=== PATIENT | female | born 1980 | race Caucasian/White ===

== ENCOUNTER 2016-05-05 18:05 | Emergency (ER) | payer BC ==
--- NOTE | ~2016-05-05 | ER ---
PATIENT'S NAME: YULY TINSLEY [facility] AGE: 35 Y [address] ROOM: [place] [address] LOCATION: [facility] ADMIT DATE: 05/05/2016 ER/Outpatient Report DISCHARGE DATE: 05/05/2016 FAMILY PHYSICIAN: Yudelka Donnelly ATTENDING PHYSICIAN: Wil Harper Admission date and time are documented in the medical record. I saw the patient at 1815 hours. CHIEF COMPLAINT: Possible passing kidney stone. HISTORY OF PRESENT ILLNESS: This patient is a 35-year-old female who over the past 4 days has had some right flank pain and now it is kind of mid-lower abdominal pelvic pain. She has some urinary frequency. She thought she had some blood in her urine. She has had multiple ureteral stones that she has passed by history. No chest pain or shortness of breath. No lightheadedness, dizziness, syncope, or near syncope. No recent coughs, colds, flus, fever, chills, or sweats. No headache, eyes, ears, nose, throat, neck, or spine pain. No fall or trauma. No nausea, vomiting, or diarrhea. No joint or muscle swelling, redness, or pain. No skin eruptions or rash. No history of neuro changes. She does have anxiety and depression. HOME MEDICATIONS: See attached medication list. ALLERGIES: REGLAN. SOCIAL HISTORY: The patient smokes a pack of cigarettes per day and has quit for 2 weeks. Nondrinker. SIGNIFICANT PAST MEDICAL HISTORY: Tobacco abuse, right arm pain, hypertension, nephrolithiasis, anxiety, and depression. OPERATIONS: Cystoscopy with stone extraction, cholecystectomy, appendectomy, and C- section. REVIEW OF SYSTEMS: All systems reviewed by me are negative with the exception of those discussed in the history of present illness. PATIENT'S NAME: YULY TINSLEY [facility] AGE: 35 Y [address] ROOM: [place] [address] LOCATION: [facility] ADMIT DATE: 05/05/2016 ER/Outpatient Report DISCHARGE DATE: 05/05/2016 FAMILY PHYSICIAN: Yudelka Donnelly ATTENDING PHYSICIAN: Wil Harper PHYSICAL EXAMINATION: VITAL SIGNS: Temperature 98.3, orally, pulse 85, respirations 16, blood pressure 120/89, and O2 sat on room air is 95%. HEAD: Normocephalic. EYES, EARS, NOSE, THROAT: Clear. NECK: Negative. LUNGS: Clear. HEART: Regular. ABDOMEN: Soft. Some mild tenderness suprapubically. No true guarding or rigidity. No distention. Bowel tones present. No organomegaly or abnormal mass palpable. No CVA tenderness. EXTREMITIES: Intact. NEUROVASCULAR: Intact. SKIN: Clear. No skin eruptions or rash. LABORATORY DATA: CMS was normal except for low potassium 3.0, elevated glucose 136, elevated creatinine 1.4, low GFR of 43, and elevated AST of 66. Urinalysis was clear. Urine test was negative. White count was 12,600, 57 segs, 33 lymphs, 7 monos, 2 eos, 1 baso, hemoglobin is 15.2 with hematocrit 46.0, and platelet count 305,000. CT scan of the abdomen and pelvis with renal stone protocol showed no evidence of abnormalities. No free air or free fluid. No ureteral stones, bladder stones, or urethral stones. She does have some stones intrarenally with no obstruction. CT scan was read by Radiology, see dictated transcribed report. IMPRESSION: 1. Flank pain, midabdominal pain, etiology uncertain. No evidence of ureteral stones or bladder stones. No evidence of urinary tract infection. There is no evidence of intraabdominal abnormalities on CT scan. 2. Mild renal insufficiency. 3. Mild hypokalemia with a potassium of 3.0. 4. Anxiety and depression. PLAN: The patient was given IV normal saline, fluids, Dilaudid IV for pain, Toradol IV for pain, and Zofran IV for nausea. Discharged home. Observation. Activity as tolerated. Fluids, empty bladder often, diet as tolerated. Continue present home medications and care. Prom[place] 7.5/325 as needed for pain, #10. Follow up with personal physician in 1 to 2 days if problems persist. Discussed ensued with the patient concerning my findings and recommendations, she understands. PATIENT'S NAME: YULY TINSLEY [facility] AGE: 35 Y [address] ROOM: [place] [address] LOCATION: ED ADMIT DATE: 05/05/2016 ER/Outpatient Report DISCHARGE DATE: 05/05/2016 FAMILY PHYSICIAN: Yudelka Donnelly ATTENDING PHYSICIAN: Wil Harper MD JUANJOSE GARCIA/danital /[id number] d: 05/05/16 2313 t: 05/06/16 0342, OUTPATIENT REPORT
[~2016-05-05 18:05] MED LIST: AMBIEN5 MG PO; ATENOLOL-CHLOR1 EAC1 PO; ATIVAN 1 MG1 MG PO; BENADRYL25 MG PO; CLARITIN10 MG PO; CYMBALTA30 MG PO; CYMBALTA60 MG PO; FLEXERIL10 MG PO; HYGROTON25 MG PO; IMITREX6 MG/0.5 M SUB-Q; IMITREX6 MG/0.51 SUB-Q; K-TAB ER20 MEQ PO; NICODERM/HABITR21 MG TRANS; NORCO 5-325 MG1 TAB PO; PERCOCET 5-3251 EACH PO; PROAIR RESPICL90 MCG INH; PROVENTIL OR V6.7 GM INH; SEROQUEL200 MG PO; SEROQUEL50 MG PO; TENORMIN50 MG PO; TYLENOL WITH C1 EACH PO; ULTRAM50 MG PO; VISTARIL50 MG PO; ZOFRAN4 MG PO; [UNRECOGNIZED DRUG - OTHER] PO; [UNRECOGNIZED DRUG - OTHER] PO
[2016-05-05 18:53] LABS: BASOPHIL # 0.1 K/uL (0.0-0.2); BASOPHIL % 0.6 %; EOSINOPHIL # 0.3 K/uL (0.0-0.5); EOSINOPHIL % 2.1 %; HEMOGLOBIN 15.2 g/dL (11.0-15.0); IMMATURE GRANULOCYTE % 0.3 %; LYMPHOCYTE # 4.2 K/uL (0.8-4.0); LYMPHOCYTE % 33.3 %; MCH 24.1 pg (27.0-34.0); MCV 72.8 fl (83.0-98.0); MONOCYTE # 0.8 K/uL (0.0-1.0); MONOCYTE % 6.7 %; MPV 9.2 fl (9.4-12.4); NEUTROPHIL # (ANC) 7.2 K/uL (1.8-7.8); NRBC % 0 /100WBC (0-0.00); PLATELET COUNT 305 K/uL (150-450); RBC 6.32 M/uL (3.50-5.50); WBC 12.6 K/uL (4.0-11.0)
[2016-05-05 18:59] LABS: BILIRUBIN URINE NEGATIVE (NEGATIVE); BLOOD URINE NEGATIVE /UL (NEGATIVE); COLOR URINE YELLOW (YELLOW); GLUCOSE URINE NEGATIVE (NEGATIVE); KETONE URINE NEGATIVE (NEGATIVE); LEUKOCYTES URINE NEGATIVE /UL (NEGATIVE); NITRITE URINE NEGATIVE (NEGATIVE); PROTEIN URINE NEGATIVE (NEGATIVE); TURBIDITY URINE CLEAR (CLEAR); UROBILINOGEN URINE 1 mg/dL (NORMAL)
[2016-05-05 19:09] LABS: ALBUMIN 3.6 gm/dL (3.5-5.0); CALCIUM 8.9 mg/dL (8.5-10.5); CREATININE 1.4 mg/dL (0.5-1.1); TOTAL BILIRUBIN 0.3 mg/dL (0.0-1.5); TOTAL PROTEIN 7.5 g/dL (6.0-8.4)
== END 2016-05-05 20:50 | disposition disaster alternative care site (69) ==
LOC: GMED 18:05
PROVIDERS: Emergency Medicine
DX: R10.30 Lower abdominal pain, unspecified (principal); N28.9 Disorder of kidney and ureter, unspecified; E87.6 Hypokalemia; F32.9 Major depressive disorder, single episode, unspecified; F41.9 Anxiety disorder, unspecified; F17.210 Nicotine dependence, cigarettes, uncomplicated; I10 Essential (primary) hypertension; Z90.49 Acquired absence of other specified parts of digestive tract; Z88.8 Allergy status to other drugs, medicaments and biological substances; Z98.890 Other specified postprocedural states
CPT/HCPCS: J1170

== ENCOUNTER 2016-07-22 23:12 | Emergency (ER) | payer BC ==
--- NOTE | ~2016-07-22 | ER ---
PATIENT'S NAME: YULY TINSLEY [facility] AGE: 36 Y [address] ROOM: [place] [address] LOCATION: [facility] ADMIT DATE: 07/22/2016 ER/Outpatient Report DISCHARGE DATE: 07/23/2016 FAMILY PHYSICIAN: Yudelka Donnelly ATTENDING PHYSICIAN: Marv Walls Time of Arrival: 2312 hours. Time of Evaluation: 2320 hours. CHIEF COMPLAINT: Migraine. HISTORY OF PRESENT ILLNESS: The patient is a 36-year-old female, who presents to the emergency department today with a chief complaint of migraine. The patient does have a history of migraines in the past. She reports her last similar headache was few months ago. She has worst headache of her life. There is no thunderclap headache. Pain is currently 8/10 in severity. Does report some nausea and vomiting x3 to 4 times. The patient did recently undergo a neck surgery on July [address] Cortez. She has not had any complications with this. No fevers or chills. No diarrhea or constipation. No photophobia. It is very similar to previous headaches. It is a tightness in the forehead. PAST MEDICAL HISTORY: Migraines, kidney stones. PAST SURGICAL HISTORY: Neck surgery, appendix, cholecystectomy, , lithotripsy. SOCIAL HISTORY: The patient denies any tobacco, alcohol, or illicit drug use. ALLERGIES: TO REGLAN, DILAUDID. MEDICATIONS: Please see list. PRIMARY CARE DOCTOR: MELISSA Masters. REVIEW OF SYSTEMS: All systems are reviewed by myself and are negative with the exception of those discussed in the HPI and past medical history. PATIENT'S NAME: YULY TINSLEY [facility] AGE: 36 Y [address] ROOM: [place], [place] [address] LOCATION: [facility] ADMIT DATE: 07/22/2016 ER/Outpatient Report DISCHARGE DATE: 07/23/2016 FAMILY PHYSICIAN: Yudelka Donnelly ATTENDING PHYSICIAN: Marv Walls PHYSICAL EXAMINATION: VITAL SIGNS: Weight 96.5 kg, blood pressure 149/94, pulse 91, respiratory rate 16, temperature 98.1, oxygen saturation 96% on room air. GENERAL: The patient is a 36-year-old female, who appears stated age, in mild acute distress secondary to pain in her head. HEENT: Normocephalic, atraumatic. Pupils are equal, round, and reactive to light and accommodation. Extraocular motions are intact. Nares are patent bilaterally. TMs are clear. Oropharynx is clear. NECK: Neck is in a cervical collar. This remains on. CARDIOVASCULAR: Regular rate and rhythm. No murmurs, rubs, or gallops. LUNGS: Clear to auscultation bilaterally. No wheezes, rales, or rhonchi. ABDOMEN: Soft, nontender, and nondistended. No rebound, rigidity, or guarding. MUSCULOSKELETAL: The patient moves all 4 extremities. 5/5 muscle strength. NEUROLOGICAL: GCS 15. Alert and oriented x4. Cranial nerves 2 through 12 are grossly intact. Normal [id number]. Normal rapid hand movement. Equal silk soaker strength bilaterally. Downward going toes. No clonus. 2/4 reflexes. SKIN: Warm and dry. There are no rashes or lesions noted. LABORATORY DATA AND X-RAYS: None. IMPRESSION: 1. Cephalgia, migraine type. 2. Initial visit. EMERGENCY DEPARTMENT COURSE: The patient was brought back to the examination room. Seen and evaluated by myself. IV is established. Laboratory analysis and imaging are not obtained secondary to the patient's history of previous migraines similar to this. The patient does report she tried her IM injections without any relief. Thus, we did initiate the IV and gave 30 mg of Toradol IV, 50 mg of Benadryl IV, as well as 10 mg of Compazine IV. The patient was also given a liter of normal saline. This has resulted in complete resolution of the patient's symptoms. I have asked that she follows up with MELISSA Masters in 2 days for re- evaluation. I have discussed return to care instructions including worsening symptoms or any other concerns to return to the emergency department as soon as possible. The patient is agreeable without further questions. DISPOSITION: The patient discharged home in good condition. PATIENT'S NAME: YULY TINSLEY [facility] AGE: 36 Y [address] ROOM: [place] [address] LOCATION: [facility] ADMIT DATE: 07/22/2016 ER/Outpatient Report DISCHARGE DATE: 07/23/2016 FAMILY PHYSICIAN: Yudelka Donnelly ATTENDING PHYSICIAN: Marv Walls DO YAAKOV DOHERTY/modl /[id number] d: 07/23/16 2356 t: 07/24/16 0230, OUTPATIENT REPORT
== END 2016-07-23 01:00 | disposition disaster alternative care site (69) ==
LOC: GMED 23:12
DX: G43.909 Migraine, unspecified, not intractable, without status migrainosus (principal); Z87.442 Personal history of urinary calculi; Z90.49 Acquired absence of other specified parts of digestive tract; Z88.8 Allergy status to other drugs, medicaments and biological substances; Z79.899 Other long term (current) drug therapy; Z98.890 Other specified postprocedural states
CPT/HCPCS: J0780; J1200; J1885; J7030

== ENCOUNTER → 2016-10-24 | Outpatient (CLI) | payer BC | END | disposition disaster alternative care site (69) | LOC: GRAD 08:32 | DX: E83.19 Other disorders of iron metabolism (principal); R74.8 Abnormal levels of other serum enzymes; N20.0 Calculus of kidney; K76.0 Fatty (change of) liver, not elsewhere classified; Z90.49 Acquired absence of other specified parts of digestive tract ==